=== PATIENT | female | born 1960 | race Caucasian/White ===

== ENCOUNTER 2024-12-09 13:36 | Emergency (ER) | payer MEDICAID, SELFPAY ==
[2024-12-09 13:43] VITALS: BP 171/93; PULSE 71; RESP 18; TEMP 36.8; O2SAT 98; BMI 27.2
--- NOTE | 2024-12-09 13:48 | XR_ITS ---
FINAL REPORT CLINICAL HISTORY: fall , wrist pain states fall 2 weeks ago; right wrist pain COMPARISON: none FINDINGS: RIGHT WRIST THREE VIEW FINDINGS: Three views show no evidence of an acute, displaced fracture or dislocation of the visualized bony architecture. The joint spaces appear normal. Osteopenia is noted. IMPRESSION: Unremarkable exam. Reviewed, Interpreted and Dictated by Ghulam Acevedo MD Transcribed by Opal Lewis Authenticated and [facility]
--- NOTE | 2024-12-09 13:48 | XR_ITS ---
FINAL REPORT CLINICAL HISTORY: fall states fall 2 weeks ago; c/o right wrist pain COMPARISON: None FINDINGS: Two views of the right hand were obtained. There is no acute fracture or dislocation. The joint spaces are well preserved. There is no acute soft tissue abnormality. Osteopenia is noted. IMPRESSION: No acute abnormality identified. Reviewed, Interpreted and Dictated by Ghulam Acevedo MD Transcribed by Opal Lewis Authenticated and [facility]
--- NOTE | 2024-12-09 13:50 | ED_ITS ---
<Statement entered by Sedrick Stuart MD - 12/09/24 16:14> I was consulted by the [facility], and we discussed the complexity of problems being addressed. I approved the treatment and management plan for this patient's care in the emergency department, thus performing a substantial portion of the medical decision making. Sedrick Stuart MD Discharge Plan Disposition Patient Disposition: Home, Self-Care Referrals Follow up/Referrals: Provider,Referral, MD [Primary Care Provider] - See instructions Activity Restrictions/Add. Instructions Additional Instructions/Restrictions: Today you were evaluated in the emergency department, the x-ray of your right hand and right wrist were unremarkable for any acute fracture. Please take Tylenol or Motrin [id number] as directed for pain. You may follow-up with your PCP within 3 to 5 days. Return to the ED for worsening of condition. Clinical Impressions Clinical Impression: Wrist pain, right Instructions Patient Instructions: DI for Acute Pain -- Adult Print Language Print Language: German Discharge ED Provider: Sedrick Stuart General Adult HPI General Chief complaint: PAIN Stated complaint: AO-2 weeks-Pain in R wrist Time Seen by Provider: 12/09/24 13:44 Mode of Arrival: Ambulatory Source of Information: Patient Description of Symptoms (Recalled from ER Triage Doc. by RN): pt presents for evaluation of right wrist pain after a fall 2 weeks ago. pt denies loc/bt History of Present Illness HPI narrative: patient is a 64-year-old female who presents to the ED for complaints of right wrist pain. Patient states that 2 weeks ago she tripped in her yard, landing on her right side, however had no injuries after. She denies hitting her head, denies loss of consciousness during fall. Related Data Allergies Allergy/AdvReac Type Severity Reaction Status Date / Time metformin Allergy Hives Verified 12/09/24 13:56 [facility] Disclaimer: The information contained in this section may have been updated after the patient was seen, as this information can be updated by other users. Social History Smoking Status: Never smoker alcohol intake: never current occupational status: unemployed Travel in the last 8 weeks?: None ROS Obtained: Yes Systems reviewed as appropriate & no additional complaints except as documented Physical Exam General General appearance: alert and in no apparent distress Head Head exam: atraumatic and normocephalic Eye Eye exam: Present normal appearance and PERRL ENT ENT exam: Present normal exam Neck Neck exam: Present normal inspection Chest Chest inspection: Present normal inspection and symmetric chest wall rise; Absent tenderness Respiratory Respiratory exam: Present normal lung sounds bilaterally Cardiovascular Cardiovascular exam: Present regular rate Abdominal Exam Abdominal exam: Present soft and normal bowel sounds; Absent tenderness Extremities Exam Extremities exam: Present full ROM and tenderness (mild right wrist tenderness upon palpation, full ROM ) Back Exam Back exam: Present normal inspection and full ROM Neurological Exam Neurological exam: Present alert and oriented X3 Psychiatric Psychiatric exam: Present normal affect and normal mood Skin Skin exam: Present warm and dry Medical Decision Making Medical Records Screening: Per USPSTF and CDC recommendations, given the prevalence of disease in our region, it is our hospital?s policy to screen for HIV and viral Hepatitis for all patients aged 18 and over and those with ongoing risk factors. [place] Inquiry Pt receiving controlled substance: No Vital Signs: 12/09/24 13:43 12/09/24 14:38 Temperature 98.3 F 98.2 F Temperature Source Oral Pulse Rate 80 Pulse Rate [Right] 71 Respiratory Rate 18 20 Blood Pressure 150/78 H Blood Pressure [Right Arm] 171/93 H Blood Pressure Mean [Right Arm] 119 Blood Pressure Source [Right Arm] Automatic Cuff Blood Pressure Position [Right Arm] Sitting 02 Sat by Pulse Oximetry 98 Oxygen Delivery Method Room Air Orders (Tests/Meds): ED MEDICATIONS Discontinued Medications Generic Name Dose Route Start Last Admin Trade Name Christianoq PRN Reason Stop Dose Admin Acetaminophen 500 mg 12/09/24 13:48 12/09/24 13:57 Acetaminophen 500mg Tab PO 12/09/24 13:49 Not Given ONCE ONE ORDERS Category Date Time Status Hand XR right 2 views [XR hand RT 2V] Stat Exams 12/09/24 13:48 Completed Wrist XR right minimum 3 views [XR wrist RT min 3V] Exams 12/09/24 13:48 Completed Stat Medical Decision Narrative: In summary, patient is a 64-year-old female who presents to the ED for complaints of right wrist pain. Patient states that 2 weeks ago she tripped in her yard, landing on her right side, however had no injuries after. She denies hitting her head, denies loss of consciousness during fall. She states that 2 days ago she started having right wrist pain, worse with movement. Patient states she does not remember try to catch herself during the fall. Has not been seen since her fall. Denies fever, chills, bodyaches, chest pain, shortness of breath, abdominal pain. Differential diagnosis include fracture, sprain, dislocation, among others. Upon physical exam, patient is alert, oriented and cooperative. She is stable. Physical exam remarkable for mild right wrist tenderness upon palpation, full ROM. No erythema or warmth noted. X-ray of right wrist and right hand obtained. Formal read unremarkable for any acute fractures. Discussed with patient to treat as a sprain, icing the area and taking Tylenol or Motrin. Advised her to follow-up with her PCP within 5 days for further evaluation. We discussed return precautions to the ED and patient verbalized understanding. Critical Care Critical Care Time Critical Care Time: No
--- NOTE | 2024-12-09 13:55 | PC.NURSE ---
pt is gone to xray via wheelchair
[2024-12-09 14:38] VITALS: BP 150/78; PULSE 80; RESP 20; TEMP 36.8; O2SAT 98
== END 2024-12-09 14:39 | disposition home or self-care (01) ==
PROVIDERS: Emergency Provider Emergency Medicine
DX: M25.531 Pain in right wrist (principal)
CPT/HCPCS: 73110; 73120; 99283